=== PATIENT | male | born 1935 | race Caucasian/White ===

== ENCOUNTER 2018-02-13 16:57 | Inpatient (IN) | payer OTHER ==
[~2018-02-13] VITALS: Ht 177.8 cm; Wt 80.7 kg
[2018-02-13 17:30] VITALS: BP 90/52
[2018-02-13] MEDS ORDERED: MORPHINE SULFATE INJ 2 MG/ML DISP.SYRIN IV PRN (17:30)
[2018-02-13] MEDS ORDERED: LORAZEPAM INJ 2 MG/ML VIAL IV PRN (17:30)
--- NOTE | 2018-02-13 17:30 | NUR ---
RECEIVED A TELEPHONE ORDER FROM DR MARCELINO, COMFORT MEASURES ONLY PATIENT TO BE ADMITTED TO HOSPICE UNDER [facility] VERBAL READBACK DONE
--- NOTE | 2018-02-13 18:20 | NUR ---
PATIENT ADMITTED UNDER [facility], UNDER GIP PER DR GABBY CARPENTER PATIENT TO BE NPO ORAL CARE TO BE PROVIDED WOUND TREATMENT TO BE CONTINUED DISCONTINUE ANY PO MEDICATIONS FAXED SHEET TO PHARMACY
[2018-02-13] MEDS ORDERED: MORPHINE SULFATE INJ 4 MG/ML DISP.SYRIN IV PRN ×2 (18:45→20:00)
--- NOTE | 2018-02-13 19:25 | NUR ---
PATIENT RESTING IN BED. COMFORT MEASURES ONLY PER ORDERS. KEPT CLEAN AND DRY THROUGHOUT SHIFT. ORAL CARE DONE THROUGHOUT SHIFT. UNABLE TO RETAKE WOUND PICTURES PER DAUGHTER'S REQUEST TO KEEP PATIENT COMFORTABLE. PICC LINE ON LEFT UPPER ARM PATENT AND INTACT. FLEXISEAL INTACT. CURRENTLY ON SIMPLE MASK 8 L SPO2 AT 94% MORPHINE 1 MG ADMINISTERED AT 1850. RECEIVED MORPHINE DRIP FROM PHARMACY AT 1900. ENDORSED TO PATRICIA RUSH AND KAYA PLASCENCIA LIST OF VALUABLES PLACED IN NEW CHART
--- NOTE | 2018-02-13 19:53 | NUR ---
STAFFING COORDINATOR NOTES, RECEIVED PATIENT AT THIS TIME, WITH EYES OPEN, DIFFICULT TO AROUSE, NOTED WITH RAPID RESPIRATORY RATE, AFEBRILE AT THIS TIME, IN SIMPLE MASK AT 8LMP WITH O2 SATURATION LEVEL 95%, MORPHINE IV DRIP STARTING AT THIS TIME ORDERED, 2MG/HR, ALL NEEDS PROVIDED AND PROMPTLY ATTEMPTED, DRY AND CLEAN AND WELL REPOSITIONED AT THIS TIME, WILL CONTINUE TO MONITOR CLOSELY.
--- NOTE | 2018-02-13 19:53 | NUR ---
PER DR GABBY CARPENTER'S ORDERS MORPHINE 2 MG Q 15 MINS FOR BREAKTHROUGH PAIN WRITTEN ORDER PLACED IN CHART
[2018-02-13 20:00] VITALS: BP 96/56
--- NOTE | 2018-02-13 20:10 | NUR ---
COPPER TAPPER NOTES, NOTED PATIENT WITH LABORED AND RAPID RESPIRATORY RATE AND TITRATE DOWN MORPHINE IV DRIP TO 4MG/HR ORDERED, WILL CONTINUE TO MONITOR CLOSELY, VS 98.0,85,28,95%, 96/56. Addendum: 02/14/18 at 0455 by PATRICIA CANDELARIO RN TITRATE MORPHINE UP
--- NOTE | 2018-02-13 20:13 | NUR ---
POLST IN CHART BY DR GABBY CARPENTER INDICATING DNR, COMFORT FOCUSED TREATMENT ENDORSED TO VICTOR MANUEL GOMEZ AND AVIATION ENGINEERVICTOR MANUEL PLASCENCIA
--- NOTE | 2018-02-13 20:14 | NUR ---
LIST OF BELONGINGS TRANSFERRED FROM FIRST CHART TO NEW CHART
--- NOTE | 2018-02-13 21:20 | NUR ---
HYDROCHLORIC AREA SUPERVISOR NOTES, PATIENT IN BED SLEEPING, DIFFICULT TO AROUSE THIS BEING THE BASELINE FOR PATIENT, BREATHING EVEN AND UNLABORED AT THIS TIME, NO ACUTE DISTRESS OR SOB NOTED AT THIS TIME, PATIENT CONTINUE WITH MORPHINE DRIP 4MG/HR , RR22, 95% VIA SIMPLE MASK @8LPM, 97/49, WILL CONTINUE TO MONITOR CLOSELY.
--- NOTE | 2018-02-14 | NUR ---
EMPLOYEE BENEFITS ATTORNEY NOTES, PATIENT BREATHING EVEN AND UNLABORED, NO SOB/ACUTE RESPIRATORI DISTRESS AT THIS TIME, WILL CONTINUE TO MONITOR CLOSELY.
--- NOTE | 2018-02-14 03:30 | NUR ---
PLANT OPERATOR NOTES, PATIENT NOTED WITH HIGH RESPIRATORY RATE AT THI TIME, AND MORPHINE IV DRIP TITRATE UP TO 6MG/HR, O2 SATURATION @ 89% AND TITRATE O2 TO 10LPM VIA SIMPLE MASK, VS 106/61, 88, 89%, RR28, WILL CONTINUE TO MONITOR CLOSELY.
--- NOTE | 2018-02-14 03:45 | NUR ---
CORN GROWER NOTES, PATIENT NOTE STILL WITH RESPIRATORY DISTRESS, AND MPORPHINR IV DRP TITRATE UP TO 8ML/HR, WILL CONTINUE TO MONITOR CLOSELY. Addendum: 02/14/18 at 0455 by PATRICIA CANDELARIO RN MORPHINE IV DRIP
--- NOTE | 2018-02-14 04:45 | NUR ---
SAND ANALYST NOTES, PATIENT NOTED WITH HIGH RESPIRATION AND LABORED BREATHING, MORPHINE TITRATE TO 10MG/HR, WILL CONTINUE TO MONITOR CLOSELY.
--- NOTE | 2018-02-14 05:20 | NUR ---
LUMP MACHINE OPERATOR NOTED, NOTED PATIENT WITH 02 SATURATION 74% AT THIS TIME, TITRATE O2, CALLED HOSPICE AND INFORMED ABOUT PATIENT'S CONDITION, SPOKE WITH WARD PER HER THEY WILL SEND A NURSE TO ASSESS PATIENT, ALL NEEDS PROVIDED, KEPT PATIENT COMFORTABLE, DRY AND CLEAN, WILL CONTINUE TO MONITOR CLOSELY,
--- NOTE | 2018-02-14 07:10 | NUR ---
RN OPENING/HOSPICE NOTES RECEIVED PT. IN BED, A&OX0. PT. IS BREATHING LABORED ON OXYGEN AT 10 L/MIN VIA SIMPLE MASK, SPO2 75%. COMMERCIAL ESTIMATOR PUMP IS RUNNING MORPHINE DRIP IV 10 ML/HR. PT. IS ON COMFORT MEASURES, AND HOSPICE. PT. HAS A TAY CATHETER, AND FLEXI SEAL. BED IS IN LOWEST, AND LOCKED POSITION. 2 SIDE RAILS UP. WILL CONTINUE TO ASSESS AND MONITOR.
--- NOTE | 2018-02-14 07:15 | NUR ---
ASSOCIATE MATERIAL HANDLER NOTES, ENDORSED CONTINUITY OF CARE TO VICTOR MANUEL GALVEZ AND ALSO ENDORSE TO F/U FIR TH MAXIMUM ADMINISTRATION OF MORPHINE, PATIENT IN 10MG/HR AT THE END OF THE SHIFT, HOSPICE AWARE OF PATIENTS'S CONDITION AT THIS TIME.
[2018-02-14 08:00] VITALS: BP 93/46
--- NOTE | 2018-02-14 10:37 | NUR ---
DISCUSSED WITH MD ABOUT PT.'S CONDITION, PER MD OKAY TO INCREASE PT.'S MORPHINE DRIP TO 12 ML/HR WITH THE MAXIMUM CAN BE GIVEN 20 ML/HR. WHEN RETURNING TO PT.'S ROOM TO INCREASE MORPHINE DRIP WITH ANOTHER NURSE, VICTOR MANUEL BARRERA, PT. WAS NOT BREATHING AND HAD NO APICAL PULSE, BOTH PUPILS DILATED 16MM, AND NON REACTIVE TO LIGHT. CHARGE NURSE WAS NOTIFIED.
--- NOTE | 2018-02-14 10:37 | NUR ---
pt. nonresponsive,no breathing no pulse,pronounced and witnessed by another rn dr. west garcia notified,[facility] notifeid they will notify family.nursing sup abdias notified.post mortem care done with two fountain dispenser.
--- NOTE | 2018-02-14 10:45 | NUR ---
CALLED [facility] TO REPORT PT. HAS PASSED. CALLED NUMBER PROVIDED BY [facility]. SPOKE WITH BRIANNE VIA PHONE, A CASE NUMBER WAS PROVIDED CC [id number]. PER [facility] PT. CAN BE RELEASED.
[2018-02-14] MEDS ORDERED: KEY,NONCONTROL,TO KEEP IN PYXI 1 EA MC ONE (11:16)
--- NOTE | 2018-02-14 11:27 | NUR ---
morphine wasted witnessed by romy kelley amount 150 ml.pharmacy notified cant find narcotic paper.
--- NOTE | 2018-02-14 11:32 | NUR ---
MORPHINE METAL POLISHER AND BUFFER APPRENTICE PUMP FLUIDS WASTED 150 ML WITH FROYLAN CHARGE NURSE WITNESS.
--- NOTE | 2018-02-14 11:47 | NUR ---
clarified w/ next of kin arrangement of body per nir she told [facility] that shazia jade from [place] will do arrangement [phone].
--- NOTE | 2018-02-14 11:50 | NUR ---
message left to shazia jade body send to kathryn.
== END 2018-02-14 11:26 | disposition expired | DRG 871 ==
LOC: HOSPICE1 16:57
DX: A41.9 Sepsis, unspecified organism (principal); I21.4 Non-ST elevation (NSTEMI) myocardial infarction; R65.21 Severe sepsis with septic shock; R53.2 Functional quadriplegia; J96.02 Acute respiratory failure with hypercapnia; D68.59 Other primary thrombophilia; Z51.5 Encounter for palliative care; Z66 Do not resuscitate
CPT/HCPCS: A4606; J2060; J2270; J2274; J7050